=== PATIENT | female | born 1960 | race Hispanic/Latino ===

== ENCOUNTER 2017-12-27 08:53 | Observation (INO) | payer BC ==
--- NOTE | 2017-12-25 10:01 | Anesthesia Consultation ---
Anesthesia Consult and Med Hx Date of service: 12/27/17 - Airway Anesthetic Teeth Evaluation: Good, Caps, Crowns ROM Head & Neck: Adequate Mental/Hyoid Distance: Adequate Mallampati Class: Class II Intubation Access Assessment: Probably Good - Pulmonary Exam CTA: Yes - Cardiac Exam Cardiac Exam: RRR - Pre-Operative Health Status ASA Pre-Surgery Classification: ASA2 Proposed Anesthetic Plan: General Nerve Block: adductor canal - Pulmonary Hx Smoking: Yes (STOPPED AT AGE 28 YRS) Hx Asthma: Yes (INHALERS PRN) Hx Sleep Apnea: No (DACIA PRE SCREEN LOW RISK) - Cardiovascular System Hx Hypertension: No - Central Nervous System Hx Back Pain: Yes Hx Psychiatric Problems: Yes (anxiety/depression) - Hematic Hx Anemia: Yes - Other Systems Hx Substance Use: Yes (MARIJUANA 2-3 X PER WEEK) Hx Cancer: No Hx Obesity: Yes - Additional Comments Anesthesia Medical History Comments: patient requests GA
[~2017-12-27 08:53] MED LIST: ANCEF/STERILE WATER 2 GM/20 ML 2 GM/20 ML SYRINGE IV SCH; DECADRON ONE; DILAUDID ONE; DIPRIVAN 10 MG/ML IV ONE; MARCAINE 0.5% 30 ML INFILTRATI ONE; NACL 0.9% 200 ML ONE; NEOSPORIN GU IR ONE; TRANEXAMIC ACID ONE; XYLOCAINE MPF 2% ONE; ZOFRAN IV NR; ZOFRAN ONE
[2017-12-27] MEDS: LACTATED RINGERS 1,000 ML IV SCH (10:10)
[2017-12-27] MEDS ORDERED: SUBLIMAZE ONE (10:24)
[2017-12-27] MEDS ORDERED: VERSED ONE (10:25)
[2017-12-27] MEDS ORDERED: PEPCID IV ONE (10:26)
[2017-12-27] MEDS ORDERED: MARCAINE 0.5% 30 ML INFILTRATI ONE (10:26)
[2017-12-27] MEDS ORDERED: NEURONTIN ONE (10:27)
[2017-12-27] MEDS ORDERED: ANCEF/STERILE WATER 2 GM/20 ML IV NR (12:00)
--- NOTE | 2017-12-27 12:07 | Anesthesia Day of Surgery ---
Anesthesia Day of Surgery - Day of Surgery Patient Examined: Yes Patient H&P Reviewed: Yes Patient is NPO: Yes Beta Blockers: No Cardiac Clearance: No Pulmonary Clearance: No
[2017-12-27] MEDS ORDERED: NACL 0.9% 1000 ML 1,000 ML ONE ×2 (12:37→16:26)
[2017-12-27] MEDS ORDERED: TRANEXAMIC ACID IV ONE (12:53)
[2017-12-27] MEDS ORDERED: ZOFRAN IV PRN ×2 (12:56→15:22)
[2017-12-27] MEDS ORDERED: DILAUDID IV PRN (12:56)
[2017-12-27] MEDS ORDERED: NEOSPORIN GU IR ONE ×2 (13:23→13:57)
[2017-12-27] MEDS ORDERED: MARCAINE 0.5% INFILTRATI ONE ×2 (14:52)
[2017-12-27] MEDS ORDERED: SODIUM CHLORIDE FLUSH SYRINGE 10 ML IV PRN (15:22)
[2017-12-27] MEDS ORDERED: DEMEROL IV PRN (15:50)
[2017-12-27] MEDS ORDERED: DEMEROL ONE (15:55)
[2017-12-27] MEDS ORDERED: ANCEF/NS 1 GM/50 ML 1 GM/50 ML BAG IV SCH (16:00)
[2017-12-27] MEDS ORDERED: NACL 0.9% 1000 ML 1,000 ML IV SCH (16:00)
[2017-12-27] MEDS ORDERED: ceFAZolin 1 GM in NACL 0.9% 20 ML IV SCH (16:00)
[2017-12-27] MEDS ORDERED: DILAUDID ONE ×2 (16:03→17:32)
--- NOTE | 2017-12-27 16:04 | Post Anesthesia Evaluation ---
- Post Anesthesia Evaluation Patient Participated: Yes Airway Patent: Yes Stable Respiratory Function: Yes Nausea/Vomiting: No Temp > 96.8F: Yes Pain Manageable: Yes Adequeate Hydration: Yes Anesthesia Complications: No Block Receding Appropriately: Not Applicable Patient on Ventilator: No
[2017-12-27] MEDS: DILAUDID IV PRN ×4 (16:55→17:45)
[2017-12-27] MEDS ORDERED: TYLENOL PO PRN (17:27)
--- NOTE | 2017-12-27 17:38 | Operative Report ---
PREOPERATIVE DIAGNOSIS: Right knee with severe degenerative joint disease, medial compartment. POSTOPERATIVE DIAGNOSIS: Right knee with severe degenerative joint disease, medial compartment. PROCEDURE PERFORMED: ____ unicompartmental arthroplasty utilizing [employer] [place] system with: 1. Size small cemented femur. 2. Size A cemented tibia. 3. A 3-mm polyethylene insert. SURGEON: Alvarado Cotton MD MANAGER STRATEGIC SOURCING: Ramon Chinchilla CSA. ANESTHESIA: General plus adductor block. ESTIMATED BLOOD LOSS: Minimal. COMPLICATIONS: None. DESCRIPTION OF PROCEDURE: The patient underwent successful induction of anesthesia. Lower extremity was meticulously prepped and draped in usual fashion after being positioned in a leg bender and exsanguinated, tourniquet inflated. Antibiotics and tranexamic acid were pre-administered. The joint was preinjected, arthrotomy site was preinjected. A standard midline median parapatellar incision was utilized with an arthrotomy extending from the superior pole of the patella to the tibial tubercle medially. Appropriate exposure of the joint was carried out. The lateral compartment was well preserved, the ACL was intact. Medial compartment demonstrated ankylosis and he felt to be an appropriate candidate for unicompartmental arthroplasty. Standard technique was utilized with resection of the meniscus and triplanar alignment on the tibia with an extramedullary guide. Standard cuts were made. She had excellent sizing for a 3, slightly tight for a 4. The intramedullary lg introduced the femur with sequential suctioning. Posterior cut made on the femur with sequential spigot reamers utilized to balance the gaps. The medial meniscus was resected as was the posterior osteophytes and anterior chamfer cut made. Wounds thoroughly irrigated. The implants were then placed after preparation of keel. There was excellent fit and fixation again felt to be slightly tight with the 4, excellent fit with a 3, a 3 mm implanted, full range of motion on table and tracking. Wound once again irrigated. Marcaine infiltrated. The arthrotomy closed with Ethibond sutures followed by Vicryl for the Monocryl for the skin. Island dressing applied, taken to the recovery room in satisfactory condition having tolerated the procedure well. Of note, tourniquet released prior to wound closure. No significant bleeding encountered. JOB# [id number] RDP/NTS
[2017-12-27] MEDS ORDERED: NARCAN 0.4 MG/1 ML IV PRN (18:03)
[2017-12-27] MEDS: DILAUDID PCA 6MG/30ML IV SCH (18:30)
[2017-12-27] MEDS: TORADOL IV PRN (22:40)
[2017-12-27] MEDS: PERCOCET 5/325 PO PRN (23:05)
[2017-12-27] MEDS: ceFAZolin 1 GM in NACL 0.9% 20 ML IV SCH (23:17)
[2017-12-27] MEDS ORDERED: TRAMADOL 100 MG PO SCH (23:45)
--- NOTE | 2017-12-27 23:46 | Consultation ---
History of Present Illness - Reason for Consult Consult date: 12/27/17 medical management Requesting physician: HUMBERTO MABRY - History of Present Illness 57-year-old female status post right partial knee arthroplasty doing well postop. Patient has history of osteoarthritis and anemia and gastroesophageal disease and peripheral neuropathy. No postop complications No fever no chills Past History Past Medical History: arthritis, GERD, other (peripheral neuropathy) Past Surgical History: total knee replacement ( peripheral neuropathy depression anemia) Social history: lives with family, full code Family history: hypertension Medications and Allergies Allergies Allergy/AdvReac Type Severity Reaction Status Date / Time No Known Allergies Allergy Verified 12/13/17 16:28 Home Medications Medication Instructions Recorded Confirmed Last Taken Type Calcium Carbonate [Calcium] 500 mg PO DAILY 12/25/17 12/25/17 Unknown History Celecoxib [celeBREX] 200 mg PO BID 12/25/17 12/25/17 Unknown History Cholecalciferol (Vitamin D3) 2,000 unit PO DAILY 12/25/17 12/25/17 Unknown History [Vitamin D3] Cyanocobalamin (Vitamin B-12) 1 dose IM Q2W 12/25/17 12/25/17 Unknown History [Vitamin B12] Duloxetine HCl [Cymbalta] 60 mg PO DAILY 12/25/17 12/25/17 Unknown History Ferrous Sulfate 324 mg PO DAILY 12/25/17 12/25/17 Unknown History Gabapentin [Neurontin] 300 mg PO DAILY 12/25/17 12/25/17 Unknown History Lawyhkxt-Armunjk-Xnur 149-Hyal 1 tab PO DAILY 12/25/17 12/25/17 Unknown History [Glucosamine-Chondr Complex Tab] Ranitidine HCl [Zantac 150 MG TAB] 150 mg PO BID 12/25/17 12/25/17 Unknown History Tramadol ER (Nf) [Ultram ER (Nf)] 100 mg PO BID 12/25/17 12/25/17 Unknown History buPROPion [Wellbutrin] 225 mg PO DAILY 12/25/17 12/25/17 Unknown History Active Meds: Active Medications Acetaminophen (Tylenol) 650 mg PO ONCE PRN PRN Reason: Pain, Mild (1-3) Cefazolin Sodium (Ancef/Sterile Water 2 Gm/20 Ml) 2 gm IV PREOP NR Stop: 12/27/17 23:59 Celecoxib (Celebrex) 200 mg PO BID LULI Last Admin: 12/27/17 23:15 Dose: 200 mg Hydromorphone/Sodium Chloride (Dilaudid Cook Relief 6mg/30ml) 0 mg IV DIRECT LULI; Protocol Last Admin: 12/27/17 18:30 Dose: 0.2 cartstart Lactated Ringer's (Lactated Ringers) 1,000 mls @ 100 mls/hr IV DIRECT LULI Last Admin: 12/27/17 10:10 Dose: 100 mls/hr Sodium Chloride (Nacl 0.9% 1000 Ml) 1,000 mls @ 100 mls/hr IV DIRECT LULI Cefazolin Sodium 1 gm/ Sodium (Chloride) 20 mls @ 2 mls/min IV Q8HR LULI Stop: 12/28/17 06:09 Last Admin: 12/27/17 23:17 Dose: 2 mls/min Ketorolac Tromethamine (Toradol) 15 mg IV Q6H PRN PRN Reason: Pain, Mild (1-3) Stop: 01/01/18 15:21 Last Admin: 12/27/17 22:40 Dose: 15 mg Meperidine HCl (Demerol) 25 mg IV ONCE PRN PRN Reason: Shivering Last Admin: 12/27/17 15:50 Dose: 25 mg Naloxone HCl (Narcan 0.4 Mg/1 Ml) 0.1 mg IV Q2MIN PRN PRN Reason: Res Rate </= 8 or 02 SAT < 92% Ondansetron HCl (Zofran) 4 mg IV PREOP NR Stop: 12/27/17 23:59 Ondansetron HCl (Zofran) 4 mg IV ONCE PRN PRN Reason: Nausea And Vomiting Ondansetron HCl (Zofran) 4 mg IV Q8H PRN PRN Reason: Nausea And Vomiting Oxycodone/Acetaminophen (Percocet 5/325) 2 tab PO Q4H PRN PRN Reason: Pain, Moderate (4-6) Last Admin: 12/27/17 23:05 Dose: 2 tab Sodium Chloride (Sodium Chloride Flush Syringe 10 Ml) 10 ml IV PRN PRN PRN Reason: LINE FLUSH Review of Systems All systems: negative Exam - Constitutional Vitals: Temp Pulse Resp BP Pulse Ox 97.5 F L 55 L 17 120/45 96 12/27/17 19:44 12/27/17 19:44 12/27/17 22:40 12/27/17 19:44 12/27/17 21:30 Assessment and Plan - Patient Problems (1) S/P total knee arthroplasty Current Visit: Yes Status: Acute Qualifiers: Laterality: right Qualified Code(s): Z96.651 - Presence of right artificial knee joint Plan to address problem: Continue physical therapy and occupational therapy (2) Peripheral neuropathy Current Visit: Yes Status: Chronic Qualifiers: Peripheral neuropathy type: polyneuropathy, unspecified Qualified Code(s): G62.9 - Polyneuropathy, unspecified Plan to address problem: Continue gabapentin (3) Osteoarthritis Current Visit: Yes Status: Chronic Qualifiers: Osteoarthritis location: knee Laterality: bilateral Plan to address problem: Continue Celebrex and tramadol (4) Anemia Current Visit: Yes Status: Chronic Qualifiers: Anemia type: iron deficiency Plan to address problem: Continue ferrous sulfate and B12 (5) Vitamin D deficiency Current Visit: Yes Status: Chronic Plan to address problem: Continue vitamin D (6) Gastroesophageal reflux disease Current Visit: Yes Status: Chronic Qualifiers: Esophagitis presence: without esophagitis Qualified Code(s): K21.9 - Gastro -esophageal reflux disease without esophagitis Plan to address problem: Continue ranitidine (7) Depression Current Visit: Yes Status: Chronic Qualifiers: Depression Type: unspecified Qualified Code(s): F32.9 - Major depressive disorder, single episode, unspecified Plan to address problem: Continue Cymbalta (8) DVT prophylaxis Current Visit: Yes Status: Acute Plan to address problem: SCDs
[2017-12-28 05:17] LABS: Basophils % (Auto) 0.1 % (0.0-1.8); Hematocrit 30.3 % (30.3-42.9); Hemoglobin 9.6 gm/dl (10.1-14.3); Lymphocytes # (Auto) 1.3 K/mm3 (1.2-5.4); Lymphocytes % (Auto) 11.5 % (13.4-35.0); Mean Corpuscular HGB Conc 32 % (30-34); Mean Corpuscular Hemoglobin 26 pg (28-32); Mean Corpuscular Volume 83 fl (79-97); Monocytes # (Auto) 0.9 K/mm3 (0.0-0.8); Monocytes % (Auto) 8.2 % (0.0-7.3); Platelet Count 271 K/mm3 (140-440); Red Blood Count 3.66 M/mm3 (3.65-5.03)
[2017-12-28] MEDS: PERCOCET 5/325 PO PRN ×4 (05:18→23:32)
[2017-12-28 05:29] LABS: Alanine Aminotransferase 17 units/L (7-56); Albumin 3.6 g/dL (3.9-5); BUN/Creatinine Ratio 22; Blood Urea Nitrogen 13 mg/dL (7-17); Hemolysis Index 6
[2017-12-28] MEDS: ceFAZolin 1 GM in NACL 0.9% 20 ML IV SCH (06:34)
[2017-12-28] MEDS: TORADOL IV PRN ×3 (08:22→20:22)
[2017-12-28] MEDS: LACTATED RINGERS 1,000 ML IV SCH ×3 (08:29→20:15)
[2017-12-28] MEDS ORDERED: WELLBUTRIN PO SCH (10:00)
[2017-12-28] MEDS ORDERED: CYMBALTA PO SCH (10:00)
[2017-12-28] MEDS: PEPCID PO SCH ×2 (10:27→22:34)
[2017-12-28] MEDS: OSCAL PO SCH (10:28)
[2017-12-28] MEDS: NEURONTIN PO SCH (10:28)
[2017-12-28] MEDS: DILAUDID PCA 6MG/30ML IV SCH (14:05)
[2017-12-29] MEDS: TORADOL IV PRN ×3 (04:25→18:30)
[2017-12-29] MEDS: PERCOCET 5/325 PO PRN ×4 (05:39→18:31)
[2017-12-29] MEDS: PEPCID PO SCH (09:40)
[2017-12-29] MEDS: NEURONTIN PO SCH (09:41)
[2017-12-29] MEDS ORDERED: DILAUDID IV PRN (12:21)
--- NOTE | 2017-12-29 15:18 | Event Note ---
Date: 12/29/[address] Rossi and said he will see the patient.
[2017-12-29 16:16] VITALS: BP 124/52
--- NOTE | 2017-12-29 16:55 | Discharge Summary ---
Providers - Providers Date of Admission: 12/27/17 15:22 Date of discharge: 12/29/17 Attending physician: HUMBERTO MABRY 12/27/17 15:26 Physical Therapy Evaluation and Treat [CONS] Routine Comment: Reason For Exam: total knee 12/27/17 15:27 Consult to Physician [CONS] Routine Comment: Consulting Provider: MICHAEL WEBBER Physician Instructions: Reason For Exam: primary care Hospitalization Procedures: S/p R TKA post op did well Disposition: [id number]/[id number] HOME UNDER HOME HLTH - Discharge Diagnoses (1) S/P total knee arthroplasty Status: Acute Qualifiers: Laterality: right Qualified Code(s): Z96.651 - Presence of right artificial knee joint (2) Peripheral neuropathy Status: Chronic Qualifiers: Peripheral neuropathy type: polyneuropathy, unspecified Qualified Code(s): G62.9 - Polyneuropathy, unspecified (3) Osteoarthritis Status: Chronic Qualifiers: Osteoarthritis location: knee Laterality: bilateral (4) Anemia Status: Chronic Qualifiers: Anemia type: iron deficiency (5) Vitamin D deficiency Status: Chronic (6) Gastroesophageal reflux disease Status: Chronic Qualifiers: Esophagitis presence: without esophagitis Qualified Code(s): K21.9 - Gastro -esophageal reflux disease without esophagitis (7) Depression Status: Chronic Qualifiers: Depression Type: unspecified Qualified Code(s): F32.9 - Major depressive disorder, single episode, unspecified (8) DVT prophylaxis Status: Acute Core Measure Documentation - Palliative Care Palliative Care/ Comfort Measures: Not Applicable - Core Measures Any of the following diagnoses?: none Exam - Constitutional Vitals: Temp Pulse Resp BP Pulse Ox 98.6 F 82 18 124/52 95 12/29/17 16:04 12/29/17 16:04 12/29/17 16:04 12/29/17 16:04 12/29/17 16:04 General appearance: Present: no acute distress, well-nourished - EENT Eyes: Present: PERRL ENT: hearing intact, clear oral mucosa - Neck Neck: Present: supple, normal ROM - Respiratory Respiratory effort: normal Respiratory: bilateral: CTA - Cardiovascular Heart Sounds: Present: S1 & S2. Absent: rub, click - Extremities Extremities: pulses symmetrical, No edema Peripheral Pulses: within normal limits - Abdominal General gastrointestinal: Present: soft, non-tender, non-distended, normal bowel sounds Female genitourinary: Present: normal - Integumentary Integumentary: Present: clear, warm, dry - Musculoskeletal Musculoskeletal: gait normal, strength equal bilaterally - Psychiatric Psychiatric: appropriate mood/affect, intact judgment & insight - Neurologic Neurologic: CNII-XII intact, moves all extremities Plan Weight Bearing Status: Weight Bear as Tolerated Follow up with: SIER[facility] MARK [Other] - 7 Days HUMBERTO MABRY MD [Staff Physician] - 7 Days
--- NOTE | 2017-12-29 18:18 | Event Note ---
Date: 12/29/17 VSS NVI Comfortable Calfsupple [place].D/C.Instructions reviewed and rx given.
[2017-12-29] MEDS: OSCAL PO SCH (18:43)
== END 2017-12-29 21:39 | disposition home health service (06) ==
LOC: OR 08:53 → 3B-SURG 15:22
PROVIDERS: ADMIT Orthopaedic Surgery; ATTEND Orthopaedic Surgery
DX: M17.11 Unilateral primary osteoarthritis, right knee (principal)
CPT/HCPCS: 27446; 36415; 64450; 80053; 84703; 85025; 88305; 96374; 96375; 96376; 97110; 97116; 97162; C1776; G0378; J0690; J1100; J1170; J1885; J2175; J2250; J2405; J2704; J3010; J7030; J7120